=== PATIENT | female | born 1960 | race Caucasian/White ===

== ENCOUNTER → 2017-03-01 | Outpatient (CLI) | payer OTHER ==
[2017-03-01] VITALS (7 sets, daily range): BP systolic 126–188; BP diastolic 61–93
[~2017-03-01] VITALS: Ht 157.5 cm; Wt 100.0 kg
[~2017-03-01] MED LIST: ADULT ONE DAI200 MCG PO; AMLODIPINE BESY10 MG PO; AMLODIPINE BESYL5 MG PO; ASPIR 8181 M1 PO; BICITRA SOLUTI473 ML PO; CATAPRES0.1 MG PO; CELEXA20 MG PO; CLONIDINE HCL0.1 MG PO; CLONIDINE HCL0.2 MG PO; COMBIGAN O20 DROP/5 LEFT EYE; DAILY VALUE1 EACH PO; DIAMOX SEQUELS500 MG PO; DUREZOL 0.100 DROP/5 LEFT EYE; DUREZOL 0.100 DROP/5 RIGHT EYE; ESSENTIAL WOMA1 EAC1 PO; FERRO-TIME325 MG PO; FUROSEMIDE20 MG PO; FUROSEMIDE40 MG PO; GABAPENTIN300 MG PO; GINKGO BILOBA PO; GLUCOPHAGE1000 MG PO; GLYBURIDE1.25 MG PO; GLYBURIDE2.5 MG PO; HYDRALAZINE HCL50 MG PO; ILEVRO1.7 ML BOTH EYES; K-TAB10 MEQ PO; KLOR-CON 1010 ME1 PO; LANTUS 3 M100 UNITS1 SC; LASIX20 MG PO; LASIX40 MG PO; LEVAQUIN750 MG PO; LISINOPRIL10 MG PO; LISINOPRIL40 MG PO; LOSARTAN POTAS100 MG PO; METFORMIN HCL1000 MG PO; METOCLOPRAMIDE H5 MG PO; MORPHINE SULFAT15 MG PO; NABI650T PO; NIFEDIPINE ER30 MG PO; NORVASC5 MG PO; PHENERGAN-CODE120 ML PO; PRAVACHOL40 MG PO; PRAVASTATIN SOD40 MG PO; SLOW RELEASE I142 M1 PO; SODIUM CHLORID3.5 GM LEFT EYE; SYSTANE BALANCE10 ML BOTH EYES; VALSARTAN320 MG PO; VITAMIN D31000 UNI2 PO; XARELTO15 MG PO
== END | disposition home or self-care (01) ==
LOC: IVINF 10:21
DX: D64.9 Anemia, unspecified (principal)
CPT/HCPCS: 36415; 36430; 86850; 86900; 86901; 86920; 86999; 96374 59; 96375; J1200; J1940; P9016

== ENCOUNTER 2017-03-17 22:02 | Inpatient (IN) | payer OTHER ==
[~2017-03-17] VITALS: Ht 157.5 cm; Wt 105.0 kg
[2017-03-17 23:56] LABS: EOSINOPHIL (%) 2.4 % (0-5); EOSINOPHIL COUNT 0.2 K/uL (0-0.3); HEMATOCRIT 26.1 % (36.0-46.0); IMMATURE GRANULOCYTE (%) 0.7 % (0.0-0.7); IMMATURE GRANULOCYTE COUNT 0.1 K/uL; INSTRUMENT ABS NEUTROPHIL CT 8.3 K/uL; LYMPHOCYTE COUNT 0.6 K/uL (1.0-2.8); MCH 27.2 PG (29.0-34.0); MONOCYTE (%) 6.6 % (3-12); MONOCYTE COUNT 0.7 K/uL (0-0.8); NEUTROPHIL (%) 84.1 % (45-76); NEUTROPHIL COUNT 8.3 K/uL (1.8-6.4); PLATELET COUNT 228 K/uL (156-360); RBC DIS.WIDTH-CV 16.4 % (11.8-14.6); RBC DIS.WIDTH-SD 51.9 % (39-53); RED BLOOD COUNT 2.98 M/uL (3.80-5.20); WHITE BLOOD COUNT 9.9 K/uL (4.1-10.2)
[2017-03-18 00:08] LABS: ADD MIUA? YES; BILIRUBIN NEGATIVE; BLOOD NEGATIVE; COLOR YELLOW ((YELLOW)); GLUCOSE (STRIP) 50; KETONES NEGATIVE; LEUKOCYTES SMALL; NITRITE NEGATIVE; PROTEIN (STRIP) >=500; SPECIFIC GRAVITY 1.012 (1.000-1.030); UROBILINOGEN 0.2 MG/DL (0.2-1.0)
[2017-03-18 00:10] LABS: MCV 87.6 FL (83-99)
[2017-03-18 00:11] LABS: CHLORIDE 107 mEq/L (99-109); POTASSIUM 4.4 mEq/L (3.7-5.4); SODIUM 139 mEq/L (136-147)
[2017-03-18 00:13] LABS: GLUCOSE 201 mg/dL (70-99)
[2017-03-18 00:14] LABS: ANION GAP 13 MEQ/L (2-14)
[2017-03-18 00:15] LABS: TOTAL BILIRUBIN 0.7 mg/dL (0.0-1.0)
[2017-03-18 00:16] LABS: ALKALINE PHOSPHATASE 125 IU/L (3-129)
[2017-03-18 00:17] LABS: GFR ESTIMATE (CALCULATED) 15 mL/min/
[2017-03-18 00:18] LABS: UREA NITROGEN (BUN) 50 mg/dL (9-23)
[2017-03-18 00:19] LABS: BACTERIA NONE SEEN /HPF; EPITHELIAL CELLS 1+ /HPF; GRANULAR CASTS 0-5 /LPF; MUCUS TRACE /LPF; RED BLOOD CELLS 0-5 /HPF (0-5); UCUL ADDED? NO; WHITE BLOOD CELLS 20-30 /HPF (0-5)
[2017-03-18 00:20] LABS: TROP-I INTERPRETATION NEGATIVE; TROPONIN-I 0.02 ng/mL (0.0-0.30)
[2017-03-18 02:01] LABS: POINT-OF-CARE METER ID UU13113702
[2017-03-18 03:33] LABS: TROP-I INTERPRETATION NEGATIVE; TROPONIN-I 0.02 ng/mL (0.0-0.30)
[2017-03-18] MEDS ORDERED: DIOVAN320 MG PO (04:32)
[2017-03-18 04:52] VITALS: BP 164/78
[2017-03-18 05:42] LABS: TROP-I INTERPRETATION NEGATIVE; TROPONIN-I 0.02 ng/mL (0.0-0.30)
[2017-03-18 07:27] VITALS: BP 150/85
[2017-03-18 09:40] LABS: POINT-OF-CARE METER ID UU13113698
[2017-03-18 11:04] VITALS: BP 148/79
[2017-03-18 11:37] LABS: POINT-OF-CARE METER ID UU13113698
[2017-03-18 16:11] VITALS: BP 148/75
[2017-03-18 16:30] LABS: POINT-OF-CARE METER ID UU13113698
[2017-03-18 20:13] VITALS: BP 170/77
[2017-03-18 21:00] VITALS: BP 155/77
[2017-03-18 21:51] LABS: POINT-OF-CARE METER ID UU13113698
[2017-03-19] VITALS: BP 134/78
[2017-03-19 03:00] VITALS: BP 134/73
[2017-03-19 04:29] VITALS: BP 138/77
[2017-03-19 07:20] VITALS: BP 151/79
[2017-03-19 08:27] LABS: POINT-OF-CARE METER ID UU13113807
[2017-03-19 12:00] VITALS: BP 156/79
[2017-03-19 12:48] LABS: HEMATOCRIT 23.6 % (36.0-46.0); MCH 27.7 PG (29.0-34.0); MCHC 30.9 G/DL (30.0-36.0); MCV 89.4 FL (83-99); PLATELET COUNT 231 K/uL (156-360); RBC DIS.WIDTH-CV 17.2 % (11.8-14.6); RBC DIS.WIDTH-SD 54.4 % (39-53); RED BLOOD COUNT 2.64 M/uL (3.80-5.20)
[2017-03-19 12:49] LABS: WHITE BLOOD COUNT 13.7 K/uL (4.1-10.2)
[2017-03-19 13:18] LABS: ANION GAP 12 MEQ/L (2-14); CHLORIDE 103 MEQ/L (99-109); GFR ESTIMATE (CALCULATED) 14 mL/min/; GLUCOSE 161 mg/dL (70-99); POTASSIUM 4.4 MEQ/L (3.7-5.4); SAMPLE HEMOLYSIS CHECK 0; SAMPLE ICTERIC CHECK 0; SAMPLE LIPEMIA CHECK 0; SODIUM 136 MEQ/L (136-147); UREA NITROGEN (BUN) 64 mg/dL (9-23)
[2017-03-19 14:18] LABS: POINT-OF-CARE METER ID UU13113807
[2017-03-19 17:49] LABS: POINT-OF-CARE METER ID UU13113807
[2017-03-19 20:00] VITALS: BP 125/79
[2017-03-19 21:50] LABS: POINT-OF-CARE METER ID UU13113698
[2017-03-20] VITALS: BP 152/84
[2017-03-20 04:00] VITALS: BP 152/84
[2017-03-20 07:30] VITALS: BP 138/81
[2017-03-20 08:06] LABS: INTERNAL CONTROL VALID? YES
[2017-03-20 08:48] LABS: ANION GAP 11 MEQ/L (2-14); CHLORIDE 105 MEQ/L (99-109); EOSINOPHIL (%) 4.3 % (0-5); EOSINOPHIL COUNT 0.4 K/uL (0-0.3); GFR ESTIMATE (CALCULATED) 13 mL/min/; HEMATOCRIT 23.3 % (36.0-46.0); IMMATURE GRANULOCYTE (%) 0.6 % (0.0-0.7); IMMATURE GRANULOCYTE COUNT 0.1 K/uL; INSTRUMENT ABS NEUTROPHIL CT 6.5 K/uL; LYMPHOCYTE COUNT 0.8 K/uL (1.0-2.8); MCH 27.5 PG (29.0-34.0); MCHC 30.5 G/DL (30.0-36.0); MCV 90.3 FL (83-99); MEAN PLAT.VOLUME 9.8 uM^3 (9.5-12.4); MONOCYTE (%) 7.8 % (3-12); MONOCYTE COUNT 0.7 K/uL (0-0.8); NEUTROPHIL (%) 77.1 % (45-76); NEUTROPHIL COUNT 6.5 K/uL (1.8-6.4); PLATELET COUNT 213 K/uL (156-360); POTASSIUM 4.2 MEQ/L (3.7-5.4); RBC DIS.WIDTH-CV 17.2 % (11.8-14.6); RBC DIS.WIDTH-SD 54.6 % (39-53); RED BLOOD COUNT 2.58 M/uL (3.80-5.20); SAMPLE HEMOLYSIS CHECK 0; SAMPLE ICTERIC CHECK 0; SAMPLE LIPEMIA CHECK 0; SODIUM 140 MEQ/L (136-147); UREA NITROGEN (BUN) 68 mg/dL (9-23); WHITE BLOOD COUNT 8.4 K/uL (4.1-10.2)
[2017-03-20 08:49] LABS: GLUCOSE 77 mg/dL (70-99)
[2017-03-20 11:02] VITALS: BP 158/83
[2017-03-20 12:18] LABS: POINT-OF-CARE METER ID UU13113807
[2017-03-20 15:05] VITALS: BP 175/83
[2017-03-20 16:46] LABS: INTERNAL CONTROL VALID? YES
[2017-03-20 17:26] LABS: POINT-OF-CARE METER ID UU13113698; POINT-OF-CARE USER ID 606021404
[2017-03-20 20:00] VITALS: BP 169/77
[2017-03-20 20:04] LABS: INFLUENZA A VIRAL ANTIGEN NEGATIVE; INFLUENZA B VIRAL ANTIGEN NEGATIVE
[2017-03-20 21:44] LABS: POINT-OF-CARE METER ID UU13113698
[2017-03-21] VITALS (10 sets, daily range): BP systolic 146–200; BP diastolic 60–92
[2017-03-21 05:42] LABS: HEMATOCRIT 24.1 % (36.0-46.0); MCH 27.9 PG (29.0-34.0); MCHC 31.1 G/DL (30.0-36.0); MCV 89.6 FL (83-99); PLATELET COUNT 211 K/uL (156-360); RBC DIS.WIDTH-CV 17.2 % (11.8-14.6); RBC DIS.WIDTH-SD 55.1 % (39-53); RED BLOOD COUNT 2.69 M/uL (3.80-5.20); WHITE BLOOD COUNT 8.6 K/uL (4.1-10.2)
[2017-03-21 06:05] LABS: ANION GAP 12 MEQ/L (2-14); CHLORIDE 106 MEQ/L (99-109); GFR ESTIMATE (CALCULATED) 14 mL/min/; MAGNESIUM 2.1 mg/dl (1.3-2.7); POTASSIUM 3.9 MEQ/L (3.7-5.4); SAMPLE HEMOLYSIS CHECK 0; SAMPLE ICTERIC CHECK 0; SAMPLE LIPEMIA CHECK 0; SODIUM 141 MEQ/L (136-147); UREA NITROGEN (BUN) 66 mg/dL (9-23)
[2017-03-21 06:06] LABS: GLUCOSE 176 mg/dL (70-99)
[2017-03-21 10:07] LABS: POINT-OF-CARE METER ID UU13113807
[2017-03-21 12:23] LABS: POINT-OF-CARE METER ID UU13113807
[2017-03-21 16:58] LABS: POINT-OF-CARE METER ID UU13113807
[2017-03-21 21:52] LABS: POINT-OF-CARE METER ID UU13113807; POINT-OF-CARE USER ID 608261316
[2017-03-22] VITALS (7 sets, daily range): BP systolic 100–195; BP diastolic 55–84
[2017-03-22 06:02] LABS: HEMATOCRIT 24.9 % (36.0-46.0); MCH 27.1 PG (29.0-34.0); MCHC 30.1 G/DL (30.0-36.0); MCV 89.9 FL (83-99); MEAN PLAT.VOLUME 10.1 uM^3 (9.5-12.4); PLATELET COUNT 213 K/uL (156-360); RBC DIS.WIDTH-CV 17.2 % (11.8-14.6); RBC DIS.WIDTH-SD 55.8 % (39-53); RED BLOOD COUNT 2.77 M/uL (3.80-5.20); WHITE BLOOD COUNT 9.2 K/uL (4.1-10.2)
[2017-03-22 06:25] LABS: ANION GAP 11 MEQ/L (2-14); CHLORIDE 105 MEQ/L (99-109); GFR ESTIMATE (CALCULATED) 14 mL/min/; GLUCOSE 137 mg/dL (70-99); POTASSIUM 3.9 MEQ/L (3.7-5.4); SAMPLE HEMOLYSIS CHECK 0; SAMPLE ICTERIC CHECK 0; SAMPLE LIPEMIA CHECK 0; SODIUM 141 MEQ/L (136-147); UREA NITROGEN (BUN) 65 mg/dL (9-23)
[2017-03-22 08:31] LABS: POINT-OF-CARE METER ID UU13113807
[2017-03-22 11:35] LABS: TROP-I INTERPRETATION NEGATIVE; TROPONIN-I 0.02 ng/mL (0.0-0.30)
[2017-03-22 11:37] LABS: ANION GAP 13 MEQ/L (2-14); CHLORIDE 105 MEQ/L (99-109); GFR ESTIMATE (CALCULATED) 14 mL/min/; GLUCOSE 169 mg/dL (70-99); POTASSIUM 3.8 MEQ/L (3.7-5.4); SAMPLE HEMOLYSIS CHECK 0; SAMPLE ICTERIC CHECK 0; SAMPLE LIPEMIA CHECK 0; SODIUM 141 MEQ/L (136-147); UREA NITROGEN (BUN) 61 mg/dL (9-23)
[2017-03-22 12:48] LABS: POINT-OF-CARE METER ID UU13113807
[2017-03-22 16:36] LABS: POINT-OF-CARE METER ID UU13113807
[2017-03-22 21:12] LABS: POINT-OF-CARE METER ID UU13113807
[2017-03-23] VITALS (7 sets, daily range): BP systolic 111–154; BP diastolic 59–81
[2017-03-23 07:42] LABS: ANION GAP 13 MEQ/L (2-14); CHLORIDE 103 MEQ/L (99-109); GFR ESTIMATE (CALCULATED) 14 mL/min/; GLUCOSE 125 mg/dL (70-99); IRON 43 MCG/DL (35-150); POTASSIUM 3.7 MEQ/L (3.7-5.4); SAMPLE HEMOLYSIS CHECK 0; SAMPLE ICTERIC CHECK 0; SAMPLE LIPEMIA CHECK 0; SODIUM 139 MEQ/L (136-147); UREA NITROGEN (BUN) 62 mg/dL (9-23)
[2017-03-23 07:53] LABS: POINT-OF-CARE METER ID UU14149398
[2017-03-23 07:59] LABS: FERRITIN 50 NG/ML (10-291)
[2017-03-23 11:45] LABS: POINT-OF-CARE METER ID UU14149398
[2017-03-23 16:24] LABS: POINT-OF-CARE METER ID UU14149398
[2017-03-23 21:31] LABS: POINT-OF-CARE METER ID UU14149398
[2017-03-24 03:19] VITALS: BP 155/80
[2017-03-24 07:29] VITALS: BP 128/70
[2017-03-24 07:47] LABS: POINT-OF-CARE METER ID UU14149398
[2017-03-24 07:57] LABS: ANION GAP 12 MEQ/L (2-14); CHLORIDE 103 MEQ/L (99-109); GFR ESTIMATE (CALCULATED) 12 mL/min/; GLUCOSE 96 mg/dL (70-99); SAMPLE HEMOLYSIS CHECK 0; SAMPLE ICTERIC CHECK 0; SAMPLE LIPEMIA CHECK 0; SODIUM 138 MEQ/L (136-147); UREA NITROGEN (BUN) 65 mg/dL (9-23)
[2017-03-24 09:38] LABS: EOSINOPHIL (%) 5.9 % (0-5); EOSINOPHIL COUNT 0.6 K/uL (0-0.3); HEMATOCRIT 25.6 % (36.0-46.0); IMMATURE GRANULOCYTE (%) 0.6 % (0.0-0.7); IMMATURE GRANULOCYTE COUNT 0.1 K/uL; INSTRUMENT ABS NEUTROPHIL CT 7.5 K/uL; LYMPHOCYTE COUNT 0.8 K/uL (1.0-2.8); MCH 27.6 PG (29.0-34.0); MCHC 30.9 G/DL (30.0-36.0); MCV 89.5 FL (83-99); MEAN PLAT.VOLUME 10.9 uM^3 (9.5-12.4); MONOCYTE (%) 8.8 % (3-12); MONOCYTE COUNT 0.9 K/uL (0-0.8); NEUTROPHIL (%) 76.4 % (45-76); NEUTROPHIL COUNT 7.5 K/uL (1.8-6.4); PLATELET COUNT 202 K/uL (156-360); RBC DIS.WIDTH-CV 17.6 % (11.8-14.6); RBC DIS.WIDTH-SD 57.2 % (39-53); RED BLOOD COUNT 2.86 M/uL (3.80-5.20); WHITE BLOOD COUNT 9.9 K/uL (4.1-10.2)
[2017-03-24 11:31] VITALS: BP 107/59
[2017-03-24 12:04] LABS: POINT-OF-CARE METER ID UU14149398
[2017-03-24 15:14] VITALS: BP 121/70
[2017-03-24 17:21] LABS: POINT-OF-CARE METER ID UU14149398
[2017-03-24 19:39] VITALS: BP 132/72
[2017-03-24 21:12] LABS: POINT-OF-CARE METER ID UU14149398
[2017-03-24 23:34] VITALS: BP 134/66
[2017-03-25 03:53] VITALS: BP 143/80
[2017-03-25 05:38] LABS: HEMATOCRIT 24.6 % (36.0-46.0); MCH 27.6 PG (29.0-34.0); MCHC 30.5 G/DL (30.0-36.0); MCV 90.4 FL (83-99); MEAN PLAT.VOLUME 10.3 uM^3 (9.5-12.4); PLATELET COUNT 220 K/uL (156-360); RBC DIS.WIDTH-CV 17.6 % (11.8-14.6); RBC DIS.WIDTH-SD 58.1 % (39-53); RED BLOOD COUNT 2.72 M/uL (3.80-5.20); WHITE BLOOD COUNT 10.2 K/uL (4.1-10.2)
[2017-03-25 06:02] LABS: ANION GAP 12 MEQ/L (2-14); CHLORIDE 101 MEQ/L (99-109); GFR ESTIMATE (CALCULATED) 10 mL/min/; GLUCOSE 123 mg/dL (70-99); SAMPLE HEMOLYSIS CHECK 1; SAMPLE ICTERIC CHECK 0; SAMPLE LIPEMIA CHECK 0; SODIUM 136 MEQ/L (136-147); UREA NITROGEN (BUN) 73 mg/dL (9-23)
[2017-03-25 06:27] LABS: POTASSIUM 4.6 MEQ/L (3.7-5.4)
[2017-03-25 07:08] VITALS: BP 147/76
[2017-03-25 08:32] LABS: POINT-OF-CARE METER ID UU14149398
[2017-03-25 11:17] VITALS: BP 131/60
[2017-03-25 11:51] LABS: POINT-OF-CARE METER ID UU14149398
[2017-03-25 15:08] VITALS: BP 134/69
[2017-03-25 17:16] LABS: POINT-OF-CARE METER ID UU14149398
[2017-03-25 19:38] VITALS: BP 116/57
[2017-03-25 21:16] LABS: POINT-OF-CARE METER ID UU14149398
[2017-03-25 23:21] VITALS: BP 137/74
[2017-03-26] VITALS (7 sets, daily range): BP systolic 14–192; BP diastolic 66–95
[2017-03-26 06:25] LABS: HEMATOCRIT 23.8 % (36.0-46.0); MCH 27.1 PG (29.0-34.0); MCHC 29.8 G/DL (30.0-36.0); MCV 90.8 FL (83-99); MEAN PLAT.VOLUME 10.5 uM^3 (9.5-12.4); PLATELET COUNT 188 K/uL (156-360); RBC DIS.WIDTH-CV 17.4 % (11.8-14.6); RED BLOOD COUNT 2.62 M/uL (3.80-5.20); WHITE BLOOD COUNT 8.8 K/uL (4.1-10.2)
[2017-03-26 06:47] LABS: ANION GAP 11 MEQ/L (2-14); CHLORIDE 103 MEQ/L (99-109); GFR ESTIMATE (CALCULATED) 9 mL/min/; GLUCOSE 92 mg/dL (70-99); POTASSIUM 4.7 MEQ/L (3.7-5.4); SAMPLE HEMOLYSIS CHECK 0; SAMPLE ICTERIC CHECK 0; SAMPLE LIPEMIA CHECK 0; SODIUM 138 MEQ/L (136-147); UREA NITROGEN (BUN) 83 mg/dL (9-23)
[2017-03-26 07:35] LABS: POINT-OF-CARE METER ID UU14149398
[2017-03-26 11:52] LABS: POINT-OF-CARE METER ID UU14149398
[2017-03-26 15:47] LABS: POINT-OF-CARE METER ID UU14149398
[2017-03-26 17:09] LABS: POINT-OF-CARE METER ID UU14149398
[2017-03-26 21:18] LABS: POINT-OF-CARE METER ID UU14149398
[2017-03-27 03:45] VITALS: BP 147/70
[2017-03-27 06:38] LABS: EOSINOPHIL (%) 5.1 % (0-5); EOSINOPHIL COUNT 0.4 K/uL (0-0.3); HEMATOCRIT 24.2 % (36.0-46.0); IMMATURE GRANULOCYTE (%) 0.5 % (0.0-0.7); INSTRUMENT ABS NEUTROPHIL CT 5.8 K/uL; LYMPHOCYTE COUNT 0.6 K/uL (1.0-2.8); MCH 27.8 PG (29.0-34.0); MCHC 30.6 G/DL (30.0-36.0); MONOCYTE (%) 10.8 % (3-12); MONOCYTE COUNT 0.8 K/uL (0-0.8); NEUTROPHIL (%) 75.4 % (45-76); NEUTROPHIL COUNT 5.8 K/uL (1.8-6.4); PLATELET COUNT 199 K/uL (156-360); RBC DIS.WIDTH-CV 17.2 % (11.8-14.6); RBC DIS.WIDTH-SD 56.8 % (39-53); RED BLOOD COUNT 2.66 M/uL (3.80-5.20); WHITE BLOOD COUNT 7.7 K/uL (4.1-10.2)
[2017-03-27 07:03] LABS: ANION GAP 12 MEQ/L (2-14); CHLORIDE 102 MEQ/L (99-109); GFR ESTIMATE (CALCULATED) 10 mL/min/; GLUCOSE 82 mg/dL (70-99); SAMPLE HEMOLYSIS CHECK 0; SAMPLE ICTERIC CHECK 0; SAMPLE LIPEMIA CHECK 0; SODIUM 139 MEQ/L (136-147); UREA NITROGEN (BUN) 81 mg/dL (9-23)
[2017-03-27 08:00] VITALS: BP 154/76
[2017-03-27 08:23] LABS: BASE EXCESS 0.4 mEq/L (-3 to +3); BICARBONATE 24.5 mEq/L (22-26); CARBOXY HGB 2.4 % (0-5); METHEMOGLOBIN 1.4 % (0-1.5); PCO2 36 mm Hg (35-45); PO2 100 mm Hg (80-100); pH 7.44 (7.35-7.45)
[2017-03-27 08:24] LABS: COMMENTS - BLOOD GASES A+C+; DEVICE NC; O2 FLOW 2 L/MIN; SITE RRA; TOTAL RESP RATE 18 resp/min
[2017-03-27 08:34] LABS: POINT-OF-CARE METER ID UU14149398
[2017-03-27 09:50] VITALS: BP 154/74
[2017-03-27 12:53] LABS: POINT-OF-CARE METER ID UU13113675
[2017-03-27 17:58] LABS: POINT-OF-CARE METER ID UU14174216
[2017-03-27 18:31] VITALS: BP 141/69
[2017-03-27 20:14] VITALS: BP 137/77
[2017-03-28 00:12] VITALS: BP 136/71
[2017-03-28 05:13] VITALS: BP 149/76
[2017-03-28 06:33] LABS: EOSINOPHIL (%) 4.2 % (0-5); EOSINOPHIL COUNT 0.4 K/uL (0-0.3); HEMATOCRIT 27.4 % (36.0-46.0); IMMATURE GRANULOCYTE (%) 0.5 % (0.0-0.7); IMMATURE GRANULOCYTE COUNT 0.1 K/uL; INSTRUMENT ABS NEUTROPHIL CT 7.9 K/uL; LYMPHOCYTE COUNT 0.5 K/uL (1.0-2.8); MCH 27.2 PG (29.0-34.0); MCHC 29.9 G/DL (30.0-36.0); MCV 90.7 FL (83-99); MEAN PLAT.VOLUME 10.8 uM^3 (9.5-12.4); MONOCYTE (%) 9.8 % (3-12); NEUTROPHIL COUNT 7.9 K/uL (1.8-6.4); PLATELET COUNT 202 K/uL (156-360); RBC DIS.WIDTH-CV 17.2 % (11.8-14.6); RBC DIS.WIDTH-SD 56.9 % (39-53); RED BLOOD COUNT 3.02 M/uL (3.80-5.20); WHITE BLOOD COUNT 9.9 K/uL (4.1-10.2)
[2017-03-28 06:52] LABS: ANION GAP 11 MEQ/L (2-14); CHLORIDE 104 MEQ/L (99-109); GFR ESTIMATE (CALCULATED) 10 mL/min/; SAMPLE HEMOLYSIS CHECK 0; SAMPLE ICTERIC CHECK 0; SAMPLE LIPEMIA CHECK 0; SODIUM 138 MEQ/L (136-147); UREA NITROGEN (BUN) 79 mg/dL (9-23)
[2017-03-28 06:54] LABS: GLUCOSE 133 mg/dL (70-99)
[2017-03-28 07:52] VITALS: BP 161/77
[2017-03-28 12:29] VITALS: BP 147/76
[2017-03-28 12:35] LABS: POINT-OF-CARE METER ID UU13113781
[2017-03-28 16:45] VITALS: BP 168/81
[2017-03-28 19:21] VITALS: BP 164/80
[2017-03-28 20:46] LABS: POINT-OF-CARE METER ID UU14174216
[2017-03-29] VITALS (7 sets, daily range): BP systolic 130–161; BP diastolic 69–84
[2017-03-29 05:49] LABS: EOSINOPHIL (%) 4.2 % (0-5); EOSINOPHIL COUNT 0.4 K/uL (0-0.3); HEMATOCRIT 27.2 % (36.0-46.0); IMMATURE GRANULOCYTE (%) 0.6 % (0.0-0.7); IMMATURE GRANULOCYTE COUNT 0.1 K/uL; LYMPHOCYTE COUNT 0.4 K/uL (1.0-2.8); MCH 27.6 PG (29.0-34.0); MCHC 30.5 G/DL (30.0-36.0); MCV 90.4 FL (83-99); MEAN PLAT.VOLUME 10.2 uM^3 (9.5-12.4); MONOCYTE (%) 10.5 % (3-12); MONOCYTE COUNT 1.1 K/uL (0-0.8); NEUTROPHIL (%) 80.4 % (45-76); PLATELET COUNT 197 K/uL (156-360); RBC DIS.WIDTH-SD 55.5 % (39-53); RED BLOOD COUNT 3.01 M/uL (3.80-5.20)
[2017-03-29 06:40] LABS: ANION GAP 8 MEQ/L (2-14); CHLORIDE 106 MEQ/L (99-109); GFR ESTIMATE (CALCULATED) 11 mL/min/; POTASSIUM 4.7 MEQ/L (3.7-5.4); SAMPLE HEMOLYSIS CHECK 0; SAMPLE ICTERIC CHECK 0; SAMPLE LIPEMIA CHECK 0; SODIUM 140 MEQ/L (136-147); UREA NITROGEN (BUN) 78 mg/dL (9-23)
[2017-03-29 06:41] LABS: GLUCOSE 82 mg/dL (70-99)
[2017-03-29 08:48] LABS: POINT-OF-CARE METER ID UU13113781
[2017-03-29 11:23] LABS: POINT-OF-CARE METER ID UU14174216
[2017-03-29 16:16] LABS: POINT-OF-CARE METER ID UU14174216
[2017-03-29 21:29] LABS: POINT-OF-CARE METER ID UU13113781
[2017-03-30 03:26] VITALS: BP 147/73
[2017-03-30 07:40] LABS: POINT-OF-CARE METER ID UU14174216
[2017-03-30 08:08] VITALS: BP 142/73
[2017-03-30 11:14] VITALS: BP 137/74
[2017-03-30 11:15] LABS: POINT-OF-CARE METER ID UU14174216
[2017-03-30 12:17] LABS: HBSG INDEX 0.25
[2017-03-30 12:18] LABS: HPCA INDEX 0.32
[2017-03-30 12:19] LABS: AHBS INDEX 0.21; HEPATITIS B SURFACE ANTIBODY Nonreactive
[2017-03-30 12:20] LABS: ANTI-HEPATITIS A VIRUS (IGM) Nonreactive; ANTI-HEPATITIS B CORE (IGM) Nonreactive; HAV INDEX 0.17; HBC IgM INDEX 0.08
[2017-03-30] MEDS ORDERED: FERROUS SULFAT325 MG PO (16:10)
[2017-03-30] MEDS ORDERED: CLONIDINE HCL0.1 MG PO (16:11)
[2017-03-30] MEDS ORDERED: NIFEDIPINE ER90 MG PO (16:11)
[2017-03-30] MEDS ORDERED: BUMETANIDE1 MG PO (16:12)
[2017-03-30] MEDS ORDERED: ELIQUIS5 MG PO (16:23)
[2017-03-30] MEDS ORDERED: APRESOLINE25 MG PO (16:26)
[2017-03-30 16:33] LABS: POINT-OF-CARE METER ID UU13113781
[2017-03-30 18:05] VITALS: BP 140/70
[2017-04-06] MEDS ORDERED: ELIQUIS5 MG PO (15:51)
[2017-04-06] MEDS ORDERED: CATAPRES0.1 MG PO (15:52)
[2017-04-06] MEDS ORDERED: APRESOLINE25 MG PO (15:52)
[2017-04-06] MEDS ORDERED: BUMEX1 MG PO (15:54)
[2017-04-06] MEDS ORDERED: PROCARDIA XL90 MG PO (15:54)
[2017-04-06] MEDS ORDERED: ZOFRAN4 MG PO (15:56)
== END 2017-03-30 18:05 | disposition home health service (06) | DRG 981 ==
LOC: EME 22:02 → EDOF 03-18 02:52 → 4SOUTH 03-18 02:52 → 4EAST 03-27 16:56
PROVIDERS: Emergency Medicine; Hospitalist; Internal Medicine; Internal Medicine Nephrology; Internal Medicine Pulmonary Disease; Student in an Organized Health Care Education/Training Program
PROC: 0WHG03Z Insertion of Infusion Device into Peritoneal Cavity, Open Approach (ICD-10-PCS; principal; 2017-03-27)
DX: J96.01 Acute respiratory failure with hypoxia (principal); I50.33 Acute on chronic diastolic (congestive) heart failure; I13.2 Hypertensive heart and chronic kidney disease with heart failure and with stage 5 chronic kidney disease, or end stage renal disease; J18.9 Pneumonia, unspecified organism; N17.9 Acute kidney failure, unspecified; N12 Tubulo-interstitial nephritis, not specified as acute or chronic; J90 Pleural effusion, not elsewhere classified; I48.0 Paroxysmal atrial fibrillation; Z68.41 Body mass index [BMI] 40.0-44.9, adult; I48.2 Chronic atrial fibrillation; N18.5 Chronic kidney disease, stage 5; E11.22 Type 2 diabetes mellitus with diabetic chronic kidney disease; I27.2 Other secondary pulmonary hypertension; J98.11 Atelectasis; I12.9 Hypertensive chronic kidney disease with stage 1 through stage 4 chronic kidney disease, or unspecified chronic kidney disease; E78.00 Pure hypercholesterolemia, unspecified; R63.5 Abnormal weight gain; R10.9 Unspecified abdominal pain; D64.9 Anemia, unspecified; E66.9 Obesity, unspecified; R55 Syncope and collapse; R00.1 Bradycardia, unspecified; E87.2 Acidosis; D63.1 Anemia in chronic kidney disease; R60.9 Edema, unspecified; Z79.4 Long term (current) use of insulin; Z87.891 Personal history of nicotine dependence; Z86.711 Personal history of pulmonary embolism
CPT/HCPCS: 36600; 70450; 71010; 74176; 78582; 80048; 80048 91; 80053; 80069; 80074; 81003; 82272; 82607; 82728; 82746; 82803; 82948; 83540; 83735; 83880; 84466; 84484; 85025; 85027; 86706; 86900; 86901; 86920; 87040; 87070; 87205; 87449; 87502; 93005; 93306; 93971; 94644; 94799; 97530 GP; 99202; 99281; 99285; A9540; A9567; C1750; J0360; J0690; J0696; J0881; J1170; J1644; J1815; J1940; J2250; J2405; J2765; J2930; J3010; J7050; P9016

== ENCOUNTER 2017-04-07 11:15 | Day surgery (SDC) | payer OTHER ==
[~2017-04-07] VITALS: Ht 157.5 cm; Wt 105.9 kg
[~2017-04-07 11:15] MED LIST changes: +APRESOLINE25 MG PO; +BUMETANIDE1 MG PO; +BUMEX1 MG PO; +DIOVAN320 MG PO; +ELIQUIS5 MG PO; +FERROUS SULFAT325 MG PO; +NIFEDIPINE ER90 MG PO; +PROCARDIA XL90 MG PO; +ZOFRAN4 MG PO
[2017-04-07 11:30] VITALS: BP 161/88
[2017-04-07 12:16] LABS: POINT-OF-CARE METER ID UU14162508
[2017-04-07 15:21] LABS: POINT-OF-CARE METER ID UU13113675; POINT-OF-CARE USER ID LABLCH83
[2017-04-07 16:22] LABS: CHLORIDE 109 mEq/L (99-109); POTASSIUM 4.7 mEq/L (3.7-5.4); SODIUM 141 mEq/L (136-147)
[2017-04-07 16:23] LABS: MAGNESIUM 1.9 mg/dL (1.3-2.7)
[2017-04-07 16:24] LABS: GLUCOSE 144 mg/dL (70-99)
[2017-04-07 16:26] LABS: ANION GAP 9 MEQ/L (2-14)
[2017-04-07 16:28] LABS: GFR ESTIMATE (CALCULATED) 18 mL/min/
[2017-04-07 16:29] LABS: UREA NITROGEN (BUN) 55 mg/dL (9-23)
[2017-04-07 16:40] VITALS: BP 131/78
[2017-04-07 19:40] VITALS: BP 139/70
[2017-04-07 21:44] LABS: POINT-OF-CARE METER ID UU14162508
[2017-04-07 23:09] VITALS: BP 126/68
[2017-04-08 03:12] VITALS: BP 150/83
[2017-04-08 07:45] VITALS: BP 170/81
[2017-04-08 07:57] LABS: ANION GAP 7 MEQ/L (2-14); CHLORIDE 105 MEQ/L (99-109); GFR ESTIMATE (CALCULATED) 18 mL/min/; POTASSIUM 4.5 MEQ/L (3.7-5.4); SAMPLE HEMOLYSIS CHECK 0; SAMPLE ICTERIC CHECK 0; SAMPLE LIPEMIA CHECK 0; SODIUM 138 MEQ/L (136-147); UREA NITROGEN (BUN) 55 mg/dL (9-23)
[2017-04-08 07:59] LABS: GLUCOSE 84 mg/dL (70-99)
[2017-04-08 11:40] VITALS: BP 135/78
[2017-04-08 11:56] LABS: POINT-OF-CARE METER ID UU14162508
[2017-04-08] MEDS ORDERED: NORCO 5/3251 TABLET PO (14:33)
== END 2017-04-08 15:41 | disposition home or self-care (01) ==
LOC: SDC 11:15 → 2EAST 11:17 → SDC 13:50 → 2EAST 04-08 15:41
PROVIDERS: Surgery
DX: T85.611A Breakdown (mechanical) of intraperitoneal dialysis catheter, initial encounter (principal); I13.2 Hypertensive heart and chronic kidney disease with heart failure and with stage 5 chronic kidney disease, or end stage renal disease; N18.6 End stage renal disease; I50.9 Heart failure, unspecified; Z99.2 Dependence on renal dialysis; E11.22 Type 2 diabetes mellitus with diabetic chronic kidney disease; Z79.4 Long term (current) use of insulin; J45.909 Unspecified asthma, uncomplicated; K21.9 Gastro-esophageal reflux disease without esophagitis; I48.91 Unspecified atrial fibrillation; Z87.891 Personal history of nicotine dependence
CPT/HCPCS: 71020; 80048; 82948; 83735; 84100; 94799; C1750; G0378; J0330; J0690; J1815; J1885; J2405; J2710; J2765; J3010; J7030; J7040; S0020

== ENCOUNTER 2017-07-25 14:53 | Day surgery (SDC) | payer OTHER ==
[~2017-07-25] VITALS: Ht 157.5 cm; Wt 94.8 kg
[~2017-07-25 14:53] MED LIST changes: +NORCO 5/3251 TABLET PO; +RENAL VITAMIN0.8 MG PO; +VERAPAMIL HCL80 MG PO
[2017-07-25 15:32] LABS: HEMATOCRIT 33.6 % (36.0-46.0); MCV 90.8 FL (83-99)
[2017-07-25 15:42] LABS: POINT-OF-CARE METER ID UU13113694
[2017-07-25 15:43] VITALS: BP 155/89
[2017-07-25 15:46] LABS: ANION GAP 8 MEQ/L (2-14); CHLORIDE 99 MEQ/L (99-109); POTASSIUM 4.7 MEQ/L (3.7-5.4); SAMPLE HEMOLYSIS CHECK 0; SAMPLE ICTERIC CHECK 0; SAMPLE LIPEMIA CHECK 0; SODIUM 136 MEQ/L (136-147)
[2017-07-25 15:51] LABS: GFR ESTIMATE (CALCULATED) 14 mL/min/; GLUCOSE 145 mg/dL (70-99); UREA NITROGEN (BUN) 36 mg/dL (9-23)
[2017-07-25 16:53] LABS: METH RESISTANT S AUREUS PCR NEGATIVE (NEGATIVE)
[2017-07-25 17:08] LABS: PROBE CHECK PASS; SPECIMEN PROCESSING CONTROL PASS
[2017-07-25 19:41] LABS: POINT-OF-CARE METER ID UU13113675; POINT-OF-CARE USER ID 515036437
[2017-07-25 20:21] VITALS: BP 151/82
[2017-07-25 20:53] VITALS: BP 142/89
== END 2017-07-25 21:00 | disposition home or self-care (01) ==
LOC: SDC 14:53
PROVIDERS: Surgery
PROC: 0JWT33Z Revision of Infusion Device in Trunk Subcutaneous Tissue and Fascia, Percutaneous Approach (ICD-10-PCS; principal; 2017-07-25)
DX: T85.611A Breakdown (mechanical) of intraperitoneal dialysis catheter, initial encounter (principal); I12.0 Hypertensive chronic kidney disease with stage 5 chronic kidney disease or end stage renal disease; E11.22 Type 2 diabetes mellitus with diabetic chronic kidney disease; N18.6 End stage renal disease; Z99.2 Dependence on renal dialysis; K66.0 Peritoneal adhesions (postprocedural) (postinfection); Z79.4 Long term (current) use of insulin; K21.9 Gastro-esophageal reflux disease without esophagitis; Z86.73 Personal history of transient ischemic attack (TIA), and cerebral infarction without residual deficits
CPT/HCPCS: 80048; 82948; 85014; 85018; 87641; 93005; J0330; J0690; J2405; J2765; J3010; S0020

== ENCOUNTER 2017-07-28 16:35 | Emergency (ER) | payer OTHER ==
[~2017-07-28] VITALS: Ht 157.5 cm; Wt 102.3 kg
[2017-07-28 20:37] VITALS: BP 132/85
== END 2017-07-28 20:38 | disposition home or self-care (01) ==
LOC: EME 16:35
DX: Z49.02 Encounter for fitting and adjustment of peritoneal dialysis catheter (principal); E11.22 Type 2 diabetes mellitus with diabetic chronic kidney disease; N18.6 End stage renal disease; Z79.4 Long term (current) use of insulin; E78.5 Hyperlipidemia, unspecified; I50.9 Heart failure, unspecified; Z88.6 Allergy status to analgesic agent; Z87.891 Personal history of nicotine dependence
CPT/HCPCS: 74020; 74176; 99281; 99284

== ENCOUNTER 2017-07-30 13:19 | Emergency (ER) | payer OTHER ==
[~2017-07-30] VITALS: Ht 157.5 cm; Wt 105.1 kg
[2017-07-30 17:40] VITALS: BP 118/98
[2017-07-31] MEDS ORDERED: CONSTULOSE10 GM/15 M PO (15:46)
== END 2017-07-30 18:01 | disposition home or self-care (01) ==
LOC: EME 13:19
DX: T82.49XA Other complication of vascular dialysis catheter, initial encounter (principal); I12.0 Hypertensive chronic kidney disease with stage 5 chronic kidney disease or end stage renal disease; E11.22 Type 2 diabetes mellitus with diabetic chronic kidney disease; N18.6 End stage renal disease; Z99.2 Dependence on renal dialysis; Z79.4 Long term (current) use of insulin; Z79.01 Long term (current) use of anticoagulants; Z87.891 Personal history of nicotine dependence
CPT/HCPCS: 99281; 99284

== ENCOUNTER 2017-07-31 11:39 | Emergency (ER) | payer OTHER ==
[~2017-07-31] VITALS: Ht 157.5 cm; Wt 104.5 kg
[2017-07-31 12:30] LABS: EOSINOPHIL (%) 4.9 % (0-5); EOSINOPHIL COUNT 0.4 K/uL (0-0.3); HEMATOCRIT 27.1 % (36.0-46.0); IMMATURE GRANULOCYTE (%) 0.6 % (0.0-0.7); IMMATURE GRANULOCYTE COUNT 0.1 K/uL; INSTRUMENT ABS NEUTROPHIL CT 6.4 K/uL; LYMPHOCYTE COUNT 0.6 K/uL (1.0-2.8); MCH 28.6 PG (29.0-34.0); MCHC 32.1 G/DL (30.0-36.0); MCV 89.1 FL (83-99); MEAN PLAT.VOLUME 9.8 uM^3 (9.5-12.4); MONOCYTE (%) 8.8 % (3-12); MONOCYTE COUNT 0.7 K/uL (0-0.8); NEUTROPHIL COUNT 6.4 K/uL (1.8-6.4); PLATELET COUNT 192 K/uL (156-360); RBC DIS.WIDTH-SD 65.8 % (39-53); RED BLOOD COUNT 3.04 M/uL (3.80-5.20); WHITE BLOOD COUNT 8.2 K/uL (4.1-10.2)
[2017-07-31 12:38] LABS: CHLORIDE 103 mEq/L (99-109); POTASSIUM 4.8 mEq/L (3.7-5.4); SODIUM 137 mEq/L (136-147)
[2017-07-31 12:40] LABS: GLUCOSE 232 mg/dL (70-99)
[2017-07-31 12:41] LABS: ANION GAP 8 MEQ/L (2-14)
[2017-07-31 12:44] LABS: GFR ESTIMATE (CALCULATED) 14 mL/min/
[2017-07-31 12:45] LABS: UREA NITROGEN (BUN) 41 mg/dL (9-23)
[2017-07-31] MEDS ORDERED: CONSTULOSE10 GM/15 M PO (15:46)
[2017-07-31 16:13] VITALS: BP 154/98
== END 2017-07-31 16:14 | disposition home or self-care (01) ==
LOC: EME 11:39
PROVIDERS: Emergency Medicine
DX: K59.00 Constipation, unspecified (principal); T85.691A Other mechanical complication of intraperitoneal dialysis catheter, initial encounter; E11.22 Type 2 diabetes mellitus with diabetic chronic kidney disease; N18.9 Chronic kidney disease, unspecified; E78.5 Hyperlipidemia, unspecified; Z79.4 Long term (current) use of insulin; Z87.891 Personal history of nicotine dependence; Z88.6 Allergy status to analgesic agent
CPT/HCPCS: 74020; 80048; 85025; 99281; 99283

== ENCOUNTER 2017-08-01 14:36 | Day surgery (SDC) | payer OTHER ==
[~2017-08-01] VITALS: Ht 157.5 cm; Wt 104.0 kg
[~2017-08-01 14:36] MED LIST changes: +CONSTULOSE10 GM/15 M PO
[2017-08-01 15:01] VITALS: BP 175/98
[2017-08-01 15:29] LABS: POINT-OF-CARE METER ID UU14174212
[2017-08-01 17:59] VITALS: BP 156/78
[2017-08-01 18:33] VITALS: BP 116/76
== END 2017-08-01 18:40 | disposition home or self-care (01) ==
LOC: SDC 14:36
PROVIDERS: Surgery
DX: T85.611A Breakdown (mechanical) of intraperitoneal dialysis catheter, initial encounter (principal); I12.0 Hypertensive chronic kidney disease with stage 5 chronic kidney disease or end stage renal disease; E11.22 Type 2 diabetes mellitus with diabetic chronic kidney disease; N18.6 End stage renal disease; Z99.2 Dependence on renal dialysis; I48.92 Unspecified atrial flutter; K21.9 Gastro-esophageal reflux disease without esophagitis; Z79.4 Long term (current) use of insulin
CPT/HCPCS: 71010; 82948; C1751; C1788; J0690; J1644; J2250; J3010

== ENCOUNTER 2017-08-29 08:52 | Day surgery (SDC) | payer OTHER ==
[~2017-08-29] VITALS: Ht 157.5 cm; Wt 93.8 kg
[2017-08-29 09:27] LABS: POINT-OF-CARE METER ID UU14174212
[2017-08-29 09:31] VITALS: BP 195/96
[2017-08-29 11:50] LABS: POINT-OF-CARE METER ID UU13113675
[2017-08-29 12:50] VITALS: BP 185/95
[2017-08-29 13:26] VITALS: BP 190/80
== END 2017-08-29 13:36 | disposition home or self-care (01) ==
LOC: SDC 08:52
PROVIDERS: Ophthalmology
DX: H33.42 Traction detachment of retina, left eye (principal); H43.12 Vitreous hemorrhage, left eye; E11.319 Type 2 diabetes mellitus with unspecified diabetic retinopathy without macular edema; I13.0 Hypertensive heart and chronic kidney disease with heart failure and stage 1 through stage 4 chronic kidney disease, or unspecified chronic kidney disease; E11.22 Type 2 diabetes mellitus with diabetic chronic kidney disease; N18.4 Chronic kidney disease, stage 4 (severe); I50.9 Heart failure, unspecified; K21.9 Gastro-esophageal reflux disease without esophagitis; F41.8 Other specified anxiety disorders; D89.3 Immune reconstitution syndrome; I48.92 Unspecified atrial flutter; I48.91 Unspecified atrial fibrillation; Z99.2 Dependence on renal dialysis; Z87.891 Personal history of nicotine dependence; N28.1 Cyst of kidney, acquired; Z79.01 Long term (current) use of anticoagulants; Z79.4 Long term (current) use of insulin
CPT/HCPCS: 82948; J0690; J1100; J2405; J2795; J3010; J3300

== ENCOUNTER 2017-10-15 12:27 | Emergency (ER) | payer OTHER ==
[~2017-10-15] VITALS: Ht 157.5 cm; Wt 92.7 kg
[2017-10-15 13:55] LABS: EOSINOPHIL (%) 2.8 % (0-5); EOSINOPHIL COUNT 0.2 K/uL (0-0.3); HEMATOCRIT 28.7 % (36.0-46.0); IMMATURE GRANULOCYTE (%) 0.3 % (0.0-0.7); INSTRUMENT ABS NEUTROPHIL CT 5.6 K/uL; LYMPHOCYTE COUNT 0.4 K/uL (1.0-2.8); MCH 27.2 PG (29.0-34.0); MCHC 30.7 G/DL (30.0-36.0); MCV 88.6 FL (83-99); MEAN PLAT.VOLUME 9.7 uM^3 (9.5-12.4); MONOCYTE (%) 11.9 % (3-12); MONOCYTE COUNT 0.8 K/uL (0-0.8); NEUTROPHIL (%) 78.7 % (45-76); NEUTROPHIL COUNT 5.6 K/uL (1.8-6.4); PLATELET COUNT 283 K/uL (156-360); RBC DIS.WIDTH-CV 17.8 % (11.8-14.6); RBC DIS.WIDTH-SD 56.5 % (39-53); RED BLOOD COUNT 3.24 M/uL (3.80-5.20); WHITE BLOOD COUNT 7.1 K/uL (4.1-10.2)
[2017-10-15 14:01] LABS: INTER. NORMALIZED RATIO 2.3; PROTHROMBIN TIME 26.6 SEC (10.2-12.9)
[2017-10-15 14:05] LABS: CHLORIDE 98 mEq/L (99-109); POTASSIUM 4.1 mEq/L (3.7-5.4); SODIUM 136 mEq/L (136-147)
[2017-10-15 14:07] LABS: GLUCOSE 190 mg/dL (70-99)
[2017-10-15 14:08] LABS: ANION GAP 12 MEQ/L (2-14)
[2017-10-15 14:11] LABS: GFR ESTIMATE (CALCULATED) 10 mL/min/
[2017-10-15 14:12] LABS: UREA NITROGEN (BUN) 65 mg/dL (9-23)
[2017-10-15] MEDS ORDERED: PERCOCET 5/31 TABLET PO (16:32)
[2017-10-15 18:28] VITALS: BP 142/84
== END 2017-10-15 17:00 | disposition home or self-care (01) ==
LOC: EME → EDBD 12:27 → EME 12:27
PROVIDERS: Emergency Medicine
DX: S30.0XXA Contusion of lower back and pelvis, initial encounter (principal); V89.2XXA Person injured in unspecified motor-vehicle accident, traffic, initial encounter; Y92.410 Unspecified street and highway as the place of occurrence of the external cause; R10.11 Right upper quadrant pain; I13.2 Hypertensive heart and chronic kidney disease with heart failure and with stage 5 chronic kidney disease, or end stage renal disease; N18.6 End stage renal disease; E11.22 Type 2 diabetes mellitus with diabetic chronic kidney disease; I50.9 Heart failure, unspecified; Z99.2 Dependence on renal dialysis; I48.1 Persistent atrial fibrillation; I48.2 Chronic atrial fibrillation; Z79.01 Long term (current) use of anticoagulants; J45.909 Unspecified asthma, uncomplicated; E78.5 Hyperlipidemia, unspecified; K21.9 Gastro-esophageal reflux disease without esophagitis; D64.9 Anemia, unspecified; F41.9 Anxiety disorder, unspecified; F32.9 Major depressive disorder, single episode, unspecified; M19.90 Unspecified osteoarthritis, unspecified site; Z87.891 Personal history of nicotine dependence; Z79.4 Long term (current) use of insulin; Z82.49 Family history of ischemic heart disease and other diseases of the circulatory system; Z83.3 Family history of diabetes mellitus
CPT/HCPCS: 71010; 72100; 80048; 85025; 85610; 93005; 93306; 99281; 99285

== ENCOUNTER 2018-01-30 18:23 | Inpatient (IN) | payer OTHER ==
[~2018-01-30] VITALS: Ht 157.5 cm; Wt 96.6 kg
[~2018-01-30 18:23] MED LIST changes: +PERCOCET 5/31 TABLET PO
[2018-01-30 19:13] LABS: HEMATOCRIT 32.1 % (36.0-46.0); HEMOGLOBIN 10.4 G/DL (11.9-15.5); MCH 30.6 PG (29.0-34.0); MCHC 32.4 G/DL (30.0-36.0); MCV 94.4 FL (83-99); PLATELET COUNT 240 K/uL (156-360); RBC DIS.WIDTH-CV 14.8 % (11.8-14.6); RBC DIS.WIDTH-SD 51.6 % (39-53); WHITE BLOOD COUNT 12.4 K/uL (4.1-10.2)
[2018-01-30 19:29] LABS: CHLORIDE 102 mEq/L (99-109); POTASSIUM 3.9 mEq/L (3.7-5.4); SODIUM 140 mEq/L (136-147)
[2018-01-30 19:31] LABS: GLUCOSE 147 mg/dL (70-99)
[2018-01-30 19:35] LABS: CREATININE 3.2 mg/dL (0.6-1.3); GFR ESTIMATE (CALCULATED) 16 mL/min/
[2018-01-30 19:36] LABS: UREA NITROGEN (BUN) 20 mg/dL (9-23)
[2018-01-30 20:30] LABS: D-DIMER ELISA < 150.00 ng/mLDDU (<230)
[2018-01-30] MEDS ORDERED: ENULOSE10 GM/15 M PO (20:59)
[2018-01-30 23:00] VITALS: BP 154/89
[2018-01-31] VITALS (11 sets, daily range): BP systolic 121–178; BP diastolic 68–103
[2018-02-01] VITALS (11 sets, daily range): BP systolic 100–210; BP diastolic 58–120
[2018-02-01 06:43] LABS: BASOPHIL (%) 0.1 % (0-1); EOSINOPHIL (%) 0 % (0-5); HEMATOCRIT 27.9 % (36.0-46.0); IMMATURE GRANULOCYTE (%) 1.2 % (0.0-0.7); LYMPHOCYTE COUNT 0.3 K/uL (1.0-2.8); MCH 29.7 PG (29.0-34.0); MCHC 32.3 G/DL (30.0-36.0); MCV 92.1 FL (83-99); MONOCYTE (%) 3.6 % (3-12); MONOCYTE COUNT 0.4 K/uL (0-0.8); NEUTROPHIL (%) 92.1 % (45-76); NEUTROPHIL COUNT 10.5 K/uL (1.8-6.4); PLATELET COUNT 193 K/uL (156-360); RBC DIS.WIDTH-CV 14.5 % (11.8-14.6); RBC DIS.WIDTH-SD 48.8 % (39-53); RED BLOOD COUNT 3.03 M/uL (3.80-5.20); WHITE BLOOD COUNT 11.4 K/uL (4.1-10.2)
[2018-02-01 07:03] LABS: CHLORIDE 95 MEQ/L (99-109); CREATININE 3.4 MG/DL (0.6-1.3); GFR ESTIMATE (CALCULATED) 15 mL/min/; GLUCOSE 312 mg/dL (70-99); POTASSIUM 3.7 MEQ/L (3.7-5.4); SODIUM 135 MEQ/L (136-147); UREA NITROGEN (BUN) 34 mg/dL (9-23)
[2018-02-02 03:43] VITALS: BP 155/75
[2018-02-02 05:50] VITALS: BP 180/100
[2018-02-02 07:01] VITALS: BP 160/96
[2018-02-02] MEDS ORDERED: COMBIVENT RESPIM4 GM IH (07:55)
[2018-02-02 08:05] VITALS: BP 156/89
[2018-02-02 09:21] LABS: BASOPHIL (%) 0.1 % (0-1); EOSINOPHIL (%) 0.1 % (0-5); HEMATOCRIT 31.6 % (36.0-46.0); HEMOGLOBIN 10.5 G/DL (11.9-15.5); LYMPHOCYTE (%) 4.5 % (15-42); LYMPHOCYTE COUNT 0.8 K/uL (1.0-2.8); MCH 30.9 PG (29.0-34.0); MCHC 33.2 G/DL (30.0-36.0); MCV 92.9 FL (83-99); MONOCYTE (%) 5.4 % (3-12); NEUTROPHIL (%) 88.9 % (45-76); NEUTROPHIL COUNT 16.4 K/uL (1.8-6.4); PLATELET COUNT 247 K/uL (156-360); RBC DIS.WIDTH-CV 14.7 % (11.8-14.6); RBC DIS.WIDTH-SD 50.4 % (39-53); WHITE BLOOD COUNT 18.4 K/uL (4.1-10.2)
[2018-02-02 09:52] LABS: CHLORIDE 95 MEQ/L (99-109); CREATININE 3.7 MG/DL (0.6-1.3); GFR ESTIMATE (CALCULATED) 13 mL/min/; GLUCOSE 294 mg/dL (70-99); IRON 94 MCG/DL (35-150); PHOSPHORUS 3.5 mg/dL (2.5-4.9); POTASSIUM 3.2 MEQ/L (3.7-5.4); SODIUM 134 MEQ/L (136-147); TRANSFERRIN SATUR. 62 % (20-55); UREA NITROGEN (BUN) 48 mg/dL (9-23)
[2018-02-02 12:45] LABS: HEMOGLOBIN A1c (GLYCOHEMOGLOB) 5.8 % (Below 5.7)
== END 2018-02-02 10:25 | disposition home or self-care (01) | DRG 190 ==
LOC: EME 18:23 → 5EAST 21:50 → EDOF 21:50 → ENRESERV 21:56 → 5EAST 22:50
PROVIDERS: Emergency Medicine; Hospitalist; Internal Medicine; Internal Medicine Nephrology
PROC: 3E1M39Z Irrigation of Peritoneal Cavity using Dialysate, Percutaneous Approach (ICD-10-PCS; principal; 2018-01-31)
DX: J44.1 Chronic obstructive pulmonary disease with (acute) exacerbation (principal); J44.0 Chronic obstructive pulmonary disease with (acute) lower respiratory infection; J20.9 Acute bronchitis, unspecified; J96.01 Acute respiratory failure with hypoxia; N17.9 Acute kidney failure, unspecified; I13.2 Hypertensive heart and chronic kidney disease with heart failure and with stage 5 chronic kidney disease, or end stage renal disease; I50.9 Heart failure, unspecified; E11.22 Type 2 diabetes mellitus with diabetic chronic kidney disease; N18.6 End stage renal disease; D63.1 Anemia in chronic kidney disease; G43.909 Migraine, unspecified, not intractable, without status migrainosus; F32.9 Major depressive disorder, single episode, unspecified; K21.9 Gastro-esophageal reflux disease without esophagitis; E78.5 Hyperlipidemia, unspecified; F41.9 Anxiety disorder, unspecified; I48.91 Unspecified atrial fibrillation; E66.9 Obesity, unspecified; Z68.38 Body mass index [BMI] 38.0-38.9, adult; Z79.01 Long term (current) use of anticoagulants; Z79.4 Long term (current) use of insulin; Z99.2 Dependence on renal dialysis; Z87.891 Personal history of nicotine dependence
CPT/HCPCS: 71046; 80048; 80069; 82948; 83036; 83540; 84466; 85025; 85027; 85379; 87502; 93005; 94640; 94640 76; 94799; 99202; 99281; 99285; J0360; J0881; J1644; J1815; J2930; J7512; S0028